=== PATIENT | male | born 1990 | race Caucasian/White ===

== ENCOUNTER 2022-10-07 18:19 | Emergency (ER) | payer SELFPAY ==
[2022-10-07 18:21] VITALS: BP 128/85; PULSE 80; RESP 20; TEMP 36.4; O2SAT 98
[2022-10-07] MEDS: Fluorescein STRIPS 100/BOX 1 MG OP (18:35)
[2022-10-07] MEDS: Balanced Salt Solution 15 ML BTL OP (18:35)
[2022-10-07] MEDS: Tetracaine 0.5% 4 ML BTL OP (18:35)
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
[2022-10-07] MEDS: Erythromycin Ophth Oint 3.5 GM TUBE OP (19:02)
[2022-10-07 19:08] VITALS: BP 123/81; PULSE 96; RESP 22; TEMP 37.1; O2SAT 100
== END 2022-10-07 19:10 | disposition home or self-care (01) ==
PROVIDERS: Emergency Provider Emergency Medicine
DX: S05.01XA Injury of conjunctiva and corneal abrasion without foreign body, right eye, initial encounter (principal); T15.01XA Foreign body in cornea, right eye, initial encounter; V86.52XA Driver of snowmobile injured in nontraffic accident, initial encounter
CPT/HCPCS: 99283; 99284